=== PATIENT | female | born 1990 | race Caucasian/White ===

== ENCOUNTER → 2016-10-12 | Outpatient (CLI) | payer BC ==
[2016-10-12 16:20] LABS: CH 30.8; CHCM 35.4; HCT 39.1 % (34.0-46.0); HDW 2.39; HGB 13.5 gm/dL (11.4-16.0); MCH 30.1 pg (25.0-35.0); MCHC 34.5 g/dL (31.0-37.0); MCV 87.1 fL (80.0-100.0); RBC 4.49 m/uL (3.80-5.40); RDW 11.8 % (11.5-15.5); WBC 15.2 k/uL (3.8-10.6)
[2016-10-12 16:36] LABS: Glucose 77 mg/dL (74-99); Non-African American GFR(MDRD) >60 (>60 ml/min/1.73 sqM)
[2016-10-12 17:09] LABS: Hepatitis B Surface Ag Index 0.06
[2016-10-13 00:25] LABS: Treponemal Ab Non-Reactive (Non-Reactive)
[2016-10-13 07:42] LABS: HIV-1/HIV-2 Ab Screen NONREAC (NON REAC)
== END | disposition home or self-care (01) ==
LOC: LABWHC1 16:00
PROVIDERS: ATTEND Obstetrics & Gynecology
DX: O26.811 Pregnancy related exhaustion and fatigue, first trimester (principal); Z3A.00 Weeks of gestation of pregnancy not specified
CPT/HCPCS: 36415; 82565; 82947; 84443; 85027; 86762; 86777; 86778; 86780; 86850; 86900; 86901; 87340; 87389

== ENCOUNTER 2016-11-08 19:15 | Emergency (ER) | payer BC ==
[2016-11-08] MEDS ORDERED: SODIUM CHLORIDE 0.9% 1,000 ML IV ONE (20:09)
[2016-11-08] MEDS ORDERED: ACETAMINOPHEN IV (For NPO) 1,000 MG in EMPTY BAG 1 BAG IVPB STA (20:09)
[2016-11-08] MEDS ORDERED: diphenhydrAMINE 50 MG/ML 1 ML VIAL IVP STA (20:09)
[2016-11-08] MEDS ORDERED: PYRIDOXINE 100 MG/ML 1 ML VIAL IVP STA (20:10)
--- NOTE | 2016-11-08 20:15 | ED ---
Abdominal Pain HPI - General Chief Complaint: Abdominal Pain Stated Complaint: Abd Pain/Vomiting Time Seen by Provider: 11/08/16 19:59 Source: patient, RN notes reviewed Mode of arrival: ambulatory Limitations: no limitations - History of Present Illness Initial Comments: Patient is a 25-year-old female presents to the emergency room for evaluation of abdominal cramping, nausea and vomiting. Patient states she's about 16 weeks . Patient states she has been following up with Dr. Huggins. Patient states this morning she woke up with migraine, nausea and vomiting and bilateral lower abdominal cramping. Patient denies vaginal bleeding. Patient denies pain or burning during urination, trouble urinating or blood in urine. Patient states because of the nausea and vomiting, she is afraid that she is dehydrated and therefore dehydrating her baby. Patient denies any fevers or chills. Patient denies any significant past medical history. Patient states this is her first . - Related Data Home Medications Medication Instructions Recorded Confirmed Pnv with Ca,No.72/Iron/FA 1 tab PO DAILY 11/08/16 11/08/16 [ Plus Tablet] Previous Rx's Medication Instructions Recorded Pyridoxine [Vitamin B-6] 20 mg PO DAILY PRN #10 tablet 11/08/16 Allergies Allergy/AdvReac Type Severity Reaction Status Date / Time hydrocodone Allergy Rash/Hives Verified 11/08/16 21:18 Review of Systems ROS Statement: Those systems with pertinent positive or pertinent negative responses have been documented in the HPI. ROS Other: All systems not noted in ROS Statement are negative. Past Medical History Past Medical History: No Reported History History of Any Multi-Drug Resistant Organisms: None Reported Additional Past Surgical History / Comment(s): breast reduction Past Psychological History: Depression Smoking Status: Never smoker Past Alcohol Use History: None Reported Past Drug Use History: None Reported General Exam - General Exam Comments Initial Comments: Laying in exam room, no distress. Limitations: no limitations General appearance: alert, in no apparent distress Head exam: Present: atraumatic, normocephalic, normal inspection Eye exam: Present: normal appearance ENT exam: Present: normal exam Neck exam: Present: normal inspection Respiratory exam: Present: normal lung sounds bilaterally. Absent: respiratory distress Cardiovascular Exam: Present: regular rate, normal rhythm, normal heart sounds GI/Abdominal exam: Present: soft, normal bowel sounds. Absent: distended, tenderness, guarding, rebound, rigid Extremities exam: Present: normal inspection Back exam: Present: normal inspection Neurological exam: Present: alert, oriented X3, CN II-XII intact, normal gait Psychiatric exam: Present: normal affect, normal mood Skin exam: Present: warm, dry, intact, normal color. Absent: rash Course Vital Signs 11/08/16 11/08/16 19:57 23:26 Temperature 98.3 F 99.1 F Pulse Rate 90 83 Respiratory 18 16 Rate Blood Pressure 123/67 114/59 O2 Sat by Pulse 98 97 Oximetry Medical Decision Making - Medical Decision Making Patient is a 25-year-old female presents to the emergency room for evaluation of abdominal cramping, nausea and vomiting. Labs show no significant findings. Ultrasound shows no significant findings. Patient states she is feeling better after fluids and antinausea medications given. Patient states she would like to be discharged home. Advised patient to follow- up with [facility]. Return parameters discussed. Case discussed with Dr. Nj. - Lab Data Result diagrams: 11/08/16 20:17 11/08/16 20:17 Lab Results 11/08/16 11/08/16 11/08/16 Range/Units 20:17 20:17 20:17 WBC 17.1 H (3.8-10.6) k/uL RBC 4.49 (3.80-5.40) m/uL Hgb 13.6 (11.4-16.0) gm/dL Hct 39.2 (34.0-46.0) % MCV 87.3 (80.0-100.0) fL MCH 30.2 (25.0-35.0) pg MCHC 34.6 (31.0-37.0) g/dL RDW 12.1 (11.5-15.5) % Plt Count 345 (150-450) k/uL Neutrophils % 79 % Lymphocytes % 13 % Monocytes % 4 % Eosinophils % 2 % Basophils % 0 % Neutrophils # 13.6 H (1.3-7.7) k/uL Lymphocytes # 2.3 (1.0-4.8) k/uL Monocytes # 0.7 (0-1.0) k/uL Eosinophils # 0.3 (0-0.7) k/uL Basophils # 0.0 (0-0.2) k/uL Sodium 138 (137-145) mmol/L Potassium 3.8 (3.5-5.1) mmol/L Chloride 104 (98-107) mmol/L Carbon Dioxide 21 L (22-30) mmol/L Anion Gap 13 mmol/L BUN 6 L (7-17) mg/dL Creatinine 0.58 (0.52-1.04) mg/dL Est GFR (MDRD) Af Amer >60 (>60 ml/min/1.73 sqM) Est GFR (MDRD) Non-Af >60 (>60 ml/min/1.73 sqM) Glucose 82 (74-99) mg/dL Calcium 9.8 (8.4-10.2) mg/dL Total Bilirubin 0.6 (0.2-1.3) mg/dL AST 24 (14-36) U/L ALT 25 (9-52) U/L Alkaline Phosphatase 47 (38-126) U/L Total Protein 7.2 (6.3-8.2) g/dL Albumin 4.1 (3.5-5.0) g/dL Amylase 70 (30-110) U/L Lipase 67 (23-300) U/L Urine Color Urine Appearance (Clear) Urine pH (5.0-8.0) Ur Specific [place] (1.001-1.035) Urine Protein (Negative) Urine Glucose (UA) (Negative) Urine Ketones (Negative) Urine Blood (Negative) Urine Nitrate (Negative) Urine Bilirubin (Negative) Urine Urobilinogen (<2.0) mg/dL Ur Leukocyte Esterase (Negative) Blood Type A Positive Blood Type Recheck No 11/08/16 Range/Units 22:10 WBC (3.8-10.6) k/uL RBC (3.80-5.40) m/uL Hgb (11.4-16.0) gm/dL Hct (34.0-46.0) % MCV (80.0-100.0) fL MCH (25.0-35.0) pg MCHC (31.0-37.0) g/dL RDW (11.5-15.5) % Plt Count (150-450) k/uL Neutrophils % % Lymphocytes % % Monocytes % % Eosinophils % % Basophils % % Neutrophils # (1.3-7.7) k/uL Lymphocytes # (1.0-4.8) k/uL Monocytes # (0-1.0) k/uL Eosinophils # (0-0.7) k/uL Basophils # (0-0.2) k/uL Sodium (137-145) mmol/L Potassium (3.5-5.1) mmol/L Chloride (98-107) mmol/L Carbon Dioxide (22-30) mmol/L Anion Gap mmol/L BUN (7-17) mg/dL Creatinine (0.52-1.04) mg/dL Est GFR (MDRD) Af Amer (>60 ml/min/1.73 sqM) Est GFR (MDRD) Non-Af (>60 ml/min/1.73 sqM) Glucose (74-99) mg/dL Calcium (8.4-10.2) mg/dL Total Bilirubin (0.2-1.3) mg/dL AST (14-36) U/L ALT (9-52) U/L Alkaline Phosphatase (38-126) U/L Total Protein (6.3-8.2) g/dL Albumin (3.5-5.0) g/dL Amylase (30-110) U/L Lipase (23-300) U/L Urine Color Yellow Urine Appearance Clear (Clear) Urine pH 5.5 (5.0-8.0) Ur Specific [place] 1.024 (1.001-1.035) Urine Protein Negative (Negative) Urine Glucose (UA) Negative (Negative) Urine Ketones 4+ H (Negative) Urine Blood Negative (Negative) Urine Nitrate Negative (Negative) Urine Bilirubin Negative (Negative) Urine Urobilinogen <2.0 (<2.0) mg/dL Ur Leukocyte Esterase Negative (Negative) Blood Type Blood Type Recheck - Radiology Data Radiology results: report reviewed, image reviewed Disposition Clinical Impression: Hyperemesis gravidarum Disposition: HOME SELF-CARE Condition: Good Instructions: Hyperemesis Gravidarum (ED) Additional Instructions: Please follow-up with [facility] in 24-48 hours. Drink plenty of fluids. Soft/ liquid diet for the next 1-2 days. If any new symptom arises, symptoms worsen or fever develops, return to ER as soon as possible. Prescriptions: Pyridoxine [Vitamin B-6] 20 mg PO DAILY PRN #10 tablet PRN Reason: Nausea Referrals: Nonstaff,Physician [Primary Care Provider] - 1-2 days Time of Disposition: 23:12
[2016-11-08 20:35] LABS: ALT 25 U/L (9-52); AST 24 U/L (14-36); Alkaline Phosphatase 47 U/L (38-126); Amylase 70 U/L (30-110); Anion Gap 13 mmol/L; Blood Urea Nitrogen 6 mg/dL (7-17); Calcium 9.8 mg/dL (8.4-10.2); Carbon Dioxide 21 mmol/L (22-30); Chloride 104 mmol/L (98-107); Glucose 82 mg/dL (74-99); Non-African American GFR(MDRD) >60 (>60 ml/min/1.73 sqM); Potassium 3.8 mmol/L (3.5-5.1); Sodium 138 mmol/L (137-145); Total Bilirubin 0.6 mg/dL (0.2-1.3); Total Protein 7.2 g/dL (6.3-8.2)
[2016-11-08 20:48] LABS: Basophils % (A) 0 %; CH 30.8; CHCM 35.4; Eosinophils # (A) 0.3 k/uL (0-0.7); Eosinophils % (A) 2 %; HCT 39.2 % (34.0-46.0); HDW 2.42; HGB 13.6 gm/dL (11.4-16.0); Luc # (Auto) 0.22; Luc % (Auto) 1; Lymphocytes # (A) 2.3 k/uL (1.0-4.8); Lymphocytes % (A) 13 %; MCH 30.2 pg (25.0-35.0); MCHC 34.6 g/dL (31.0-37.0); MCV 87.3 fL (80.0-100.0); Mean Platelet Volume 6.5; Monocytes # (A) 0.7 k/uL (0-1.0); Monocytes % (A) 4 %; Neutrophils # (A) 13.6 k/uL (1.3-7.7); Neutrophils % (A) 79 %; RBC 4.49 m/uL (3.80-5.40); RDW 12.1 % (11.5-15.5); WBC 17.1 k/uL (3.8-10.6); WBC (Perox) 18.24
--- NOTE | 2016-11-08 21:22 | US ---
EXAMINATION TYPE: US OB >= 14 WK FETUS DATE OF EXAM: 11/08/2016 8:19 PM COMPARISON: None CLINICAL HISTORY: Pain TECHNIQUE: Transabdominal (TA) GESTATIONAL AGE / DATING Physician Established: (15 weeks/6 days) EDC: 04/26/2017 Dates by LMP: (15 weeks/6 days) EDC: 04/26/2017 Dates by First Scan: No previous Dates by Current Scan: (15 weeks/5 days) EDC: 04/27/2017 SURVEY IUP: Single PLACENTA: Anterior PREVIA: No Previa VANESSA: 11 cm CERVICAL LENGTH (transabdominal: norm > 3.0cm): 3 cm BIOMETRY PRESENTATION: Breech LIE: Longitudinal BPD: 2.99 cm 15 weeks / 3 days HC: 11.7 cm 15 weeks / 5 days AC: 9.5 cm 15 weeks / 4 days FL: 1.7 cm 15 weeks / 1 days ESTIMATED WEIGHT IN GRAMS: 124.07 grams ESTIMATED WEIGHT IN LBS/OZS: 0 lbs. 4 oz. WEIGHT PERCENTAGE BASED ON ESTABLISHED DATES: 16.6% HC/AC: 1.23 Normal FL/AC: 18.2 Normal HEART RATE: 155 bpm RHYTHM: Normal IMPRESSION: 1. VIABLE INTRAUTERINE . 2. Placental smoothly marginated anechoic focus measuring 2.8 X 0.7 X 3.2 cm, likely subacute-chronic subchorionic hemorrhage.
[2016-11-08] MEDS ORDERED: METOCLOPRAMIDE 5 MG/ML 2 ML VIAL IVP STA (22:00)
[2016-11-08 22:28] LABS: Appearance,Urine Clear (Clear); Bilirubin,Urine Negative (Negative); Glucose,Urine (UA) Negative (Negative); Ketones,Urine 4+ (Negative); Leukocyte Esterase,Urine Negative (Negative); Nitrite,Urine Negative (Negative); PH, Urine 5.5 (5.0-8.0); Protein,Urine Negative (Negative); Specific Gravity,Urine 1.024 (1.001-1.035); UA Billing (MACRO vs. MICRO) CHEM; Urobilinogen,Urine <2.0 mg/dL (<2.0)
[2016-11-08 23:30] VITALS: BP 114/59; PULSE 83; RESP 16; TEMP 99.1
== END 2016-11-08 23:33 | disposition home or self-care (01) ==
LOC: EC 19:15
DX: O21.0 Mild hyperemesis gravidarum (principal); O99.89 Other specified diseases and conditions complicating pregnancy, childbirth and the puerperium; R10.9 Unspecified abdominal pain; Z3A.16 16 weeks gestation of pregnancy; Z79.899 Other long term (current) drug therapy; Z88.5 Allergy status to narcotic agent
CPT/HCPCS: 99284; 96374; 96375 ×3; 96361; 36415; 86900; 86901; 80053; 82150; 83690; 85025; 81003; 76805; J1200; J3415; J2765; J0131

== ENCOUNTER → 2016-11-28 | Outpatient (CLI) | payer BC ==
--- NOTE | 2016-11-28 17:02 | US ---
EXAMINATION TYPE: US OB anatomy transabd DATE OF EXAM: 11/28/2016 4:42 PM COMPARISON: US in PACS HISTORY: LGA, Anatomy Scan TECHNIQUE: Transabdominal (TA) EXAM MEASUREMENTS: GESTATIONAL AGE / DATING Physician Established: (18 weeks/5 days) EDC: 04/26/2017 Dates by LMP: (18 weeks/5 days) EDC: 04/26/2017 Dates by First Scan: (18 weeks/4 days) EDC: 04/27/2017 Dates by Current Scan for: (18 weeks/3 days) EDC: 04/28/2017 SURVEY IUP: Single PLACENTA: Anterior PREVIA: Low Lying VANESSA: 12.2 cm Normal CERVICAL LENGTH (transabdominal: norm > 3.0cm): 3.2 cm BIOMETRY PRESENTATION: Breech BPD: 4.2 cm 18 weeks / 6 days HC: 15.7 cm 18 weeks / 4 days AC: 12.9 cm 18 weeks / 3 days FL: 2.7 cm 18 weeks / 1 days ESTIMATED WEIGHT IN GRAMS: 235 grams ESTIMATED WEIGHT IN LBS/OZS: 0 lbs. 8 oz. WEIGHT PERCENTAGE BASED ON ESTABLISHED DATE: 25 % HC/AC: 1.21 Normal FL/AC: 21 Normal HEART RATE: 159 bpm RHYTHM: Normal ANATOMY SEEN (within normal limits): * Lateral Vent (< 1 cm) 0.9 cm * Cisterna Magna (< 1.1 cm) 0.3 cm * Nuchal Fold (< 0.6 cm) 0.2 cm * Cerebellum (varies with age) 1.8 cm Choroid Plexus (bilateral) Midline Falx Cavus Septi Pellucidi Four Chamber Heart Outflow tracts: LVOT/RVOT Stomach Situs Nose / Lips Diaphragm Kidneys (bilateral) Bladder Cord Insert Three Vessel Cord Longitudinal Spine Transverse Spine Arms (bilateral) Legs (bilateral) IMPRESSION: Single, viable IUP/ No abnormality seen at this time
== END | disposition home or self-care (01) ==
LOC: RADUSWWP 15:55
PROVIDERS: ATTEND Obstetrics & Gynecology
DX: O36.62X0 Maternal care for excessive fetal growth, second trimester, not applicable or unspecified (principal); Z3A.18 18 weeks gestation of pregnancy
CPT/HCPCS: 76811; 82105; 82677; 84702; 86336

== ENCOUNTER → 2017-01-16 | Outpatient (CLI) | payer BC ==
[2017-01-16 14:01] LABS: CH 30.2; CHCM 34.2; HCT 37.9 % (34.0-46.0); HDW 2.48; HGB 13.4 gm/dL (11.4-16.0); MCH 31.2 pg (25.0-35.0); MCHC 35.2 g/dL (31.0-37.0); MCV 88.6 fL (80.0-100.0); Mean Platelet Volume 6.7; RBC 4.28 m/uL (3.80-5.40); RDW 12.1 % (11.5-15.5); WBC 20.8 k/uL (3.8-10.6)
== END | disposition home or self-care (01) ==
LOC: LABWHC1 12:45
PROVIDERS: ATTEND Obstetrics & Gynecology
DX: Z34.02 Encounter for supervision of normal first pregnancy, second trimester (principal); Z3A.00 Weeks of gestation of pregnancy not specified
CPT/HCPCS: 36415; 82950; 85027

== ENCOUNTER 2017-03-13 00:31 | Inpatient (IN) | payer BC ==
[2017-03-13] MEDS ORDERED: LACTATED RINGERS 1,000 ML IV SCH ×4 (01:00)
[2017-03-13] MEDS ORDERED: BETAMET ACET-BETAMETH SOD PHOS 6 MG/ML VIAL IM SCH (01:00)
[2017-03-13 01:23] LABS: Basophils # (A) 0.1 k/uL (0-0.2); Basophils % (A) 0 %; CH 30.4; CHCM 34.3; Eosinophils # (A) 0.3 k/uL (0-0.7); Eosinophils % (A) 2 %; HCT 36.4 % (34.0-46.0); HDW 2.38; HGB 12.4 gm/dL (11.4-16.0); Luc % (Auto) 1; Lymphocytes # (A) 2.6 k/uL (1.0-4.8); Lymphocytes % (A) 13 %; MCH 30.2 pg (25.0-35.0); MCV 88.9 fL (80.0-100.0); Mean Platelet Volume 7.3; Monocytes # (A) 1.1 k/uL (0-1.0); Monocytes % (A) 5 %; Neutrophils # (A) 15.8 k/uL (1.3-7.7); Neutrophils % (A) 79 %; RBC 4.09 m/uL (3.80-5.40); RDW 12.9 % (11.5-15.5); WBC 20.1 k/uL (3.8-10.6); WBC (Perox) 20.37
--- NOTE | 2017-03-13 02:04 | US ---
US FEMALE PELVIS DATE OF EXAM: 03/13/2017 COMPARISON: Ultrasound pelvis dated 11/28/2016. CLINICAL HISTORY: bleeding TECHNIQUE: Transabdominal sonographic imaging was performed of the female pelvis. GESTATIONAL AGE / DATING Physician Established: (33 weeks/5 days) EDC: 04/26/2017 Dates by LMP: (33 weeks/5 days) EDC: 04/26/2017 Dates by First Scan: (33 weeks/4 days) EDC: 04/27/2017 Dates by Current Scan: (32 weeks/4 days) EDC: 05/04/2017 SURVEY IUP: Single PLACENTA: Anterior. Placental lakes visualized within the placenta PREVIA: No Previa VANESSA: 4.3 cm Oligohydramnios CERVICAL LENGTH (transabdominal: norm > 3.0cm): 3.4 cm BIOMETRY PRESENTATION: Vertex LIE: Longitudinal BPD: 8.4 cm = 34 weeks / 0 days HC: 30.3 cm = 33 weeks / 5 days AC: 27.6 cm = 31 weeks / 4 days FL: 6.3 cm = 32 weeks / 5 days ESTIMATED WEIGHT IN GRAMS: 1956 grams ESTIMATED WEIGHT IN LBS/OZS: 4 lbs. 5 oz. WEIGHT PERCENTAGE BASED ON ESTABLISHED DATES: 11% HC/AC: 1.10 Normal FL/AC: 22.93 Normal HEART RATE: 132 bpm RHYTHM: Normal Impression: Viable IUP. Oligohydramnios. Dr. Contreras present during the exam.
[2017-03-13 02:23] VITALS: BP 123/59; PULSE 58; RESP 16; TEMP 97.2; BMI 32.9
[2017-03-13] MEDS: AMPICILLIN 2,000 MG in SODIUM CHLORIDE 0.9% 100 ML IVPB SCH ×2 (02:29→06:23)
--- NOTE | 2017-03-13 02:30 | P.HPOB ---
History of Present Illness H&P Date: 03/13/17 Chief Complaint: IUP 33 weeks, vaginal bleeding: suspect PPROM Memo is a 26-year-old female at 33 weeks gestation who arrives tonight complaining of vaginal bleeding. She reports that earlier in the evening she and her are having intercourse and during active having intercourse she noticed a large gush of fluid which she attributed to being blood as she looked down there was grossly bloody. She went to the bathroom and continued to have blood in the therefore they came right into the hospital. I was in the hospital and did evaluate her immediately. heart tones were reactive in the 130s. I did do a sterile speculum exam and noted that there was blood coming from what appeared to be inside the cervix but it was somewhat difficult to tell due to the volume of blood. I did do this sterile vaginal exam at that time as it appeared that her cervix might be slightly open she was dilated to 1/ 2 cm 80% effaced and -2 station. At this point we did order a stat ultrasound which showed no abnormalities of the placenta but showed an VANESSA of 4. I suspect basal cell information that she actually ruptured her membranes and she has premature rupture of membranes. We did have a lengthy discussion of this and the likelihood that we will need to transfer her if we can stabilize the bleeding and make sure that she has no more significant bleeding. At this time she has no contractions. She has received 1 dose of Celestone and a dose of IV antibiotics. We'll continue to monitor over the next few hours and if the bleeding abates then we'll plan transfer she understands and all these questions with regard to this are answered for the patient in detail. Her is also present at bedside. Asked medical history is based unremarkable. Past surgical history breast reduction. ALLERGIES to hydrocodone. Social history is unremarkable. Family history is noncontributory. On physical exam vital signs are currently stable and she is afebrile. Heart regular, lungs clear, extremities without pain. Abdomen is otherwise soft gravid uterus is noted there were no contractions palpated or seen on the monitor. heart tones continued to be reactive in the 130s to 140s. Sterile speculum exam was done as above. Assessment intrauterine at 33 weeks 5 days gestation with suspected premature rupture membranes. A an amnio sure is unable to be done due to significant quantity of blood within the specimen. However ultrasound does make it seemed very likely that she is ruptured. At this time I am not starting mag sulfate as she is not jennifer and she is are received 1 of the doses of steroid. Plan cautious observation at this time to verify stability of both she and the baby. Likely transfer to a tertiary care center. Past Medical History Past Medical History: No Reported History History of Any Multi-Drug Resistant Organisms: None Reported Additional Past Surgical History / Comment(s): breast reduction Past Psychological History: Depression Smoking Status: Never smoker Past Alcohol Use History: None Reported Past Drug Use History: None Reported Medications and Allergies Home Medications Medication Instructions Recorded Confirmed Type Pnv,Calcium 72/Iron/Folic Acid 1 tab PO DAILY 11/08/16 03/13/17 History [ Plus Tablet] Allergies Allergy/AdvReac Type Severity Reaction Status Date / Time hydrocodone Allergy Rash/Hives Verified 03/13/17 00:42 Exam Osteopathic Statement: *. No significant issues noted on an osteopathic structural exam other than those noted in the History and Physical/Consult. - Vital Signs Vital signs: Vital Signs Temp Pulse Resp BP 03/13/17 00:41 96.6 F L 65 18 126/63 Intake and Output 03/12/17 03/12/17 03/13/17 14:59 22:59 06:59 Other: Weight 92.533 kg Patient Weight 03/13/17 06:59 Weight 92.533 kg Results Result Diagrams: 03/13/17 01:00 Abnormal Lab Results - Last 24 Hours (Table) 03/13/17 Range/Units 01:00 WBC 20.1 H (3.8-10.6) k/uL Neutrophils # 15.8 H (1.3-7.7) k/uL Monocytes # 1.1 H (0-1.0) k/uL
[2017-03-13] MEDS ORDERED: MAGNESIUM SULFATE-WATER PMX 4 GM in WATER FOR INJECTION 50 50ML.BAG IVPB ONE ×2 (03:07→03:08)
[2017-03-13] MEDS ORDERED: CALCIUM GLUCONATE 100 MG/ML 10 ML VIAL IV ONE (03:07)
[2017-03-13] MEDS ORDERED: MAGNESIUM SULFATE-WATER PMX 20 GM in WATER FOR INJECTION 1 500ML.BAG IV SCH (03:15)
--- NOTE | 2017-03-13 08:47 | P.TRANS ---
Providers Date of admission: 03/13/17 01:50 Expected date of discharge: 03/13/17 Attending physician: Pradeep Contreras Primary care physician: Stated None Hospital Course: Mercedes is a 18-year-old at 33 weeks 5 days gestation who had what we believe is spontaneous rupture of membranes (PPROM (last night while having intercourse. She has been monitored throughout the night here due to vaginal bleeding initially the vaginal bleeding has essentially stopped there is no evidence of abruption no pain or tenderness at all patient has only rare contractions. heart tones have a baseline between 110 and 120 but are reactive and show knife no signs of distress or other issues. [facility] and she is under supervision of maternal medicine specialist . Will arrange transfer at this time. We did watch the patient for a number of hours to verify stability. Heart regular, lungs clear, extremities without pain. Her vital signs are stable and she is afebrile. We'll plan to transfer her on mag sulfate at this time they may choose to discontinue it and this was discussed with the patient in detail but as she is Christiano started on and she is going to be transported will maintain the mag sulfate for now. She has received 1 dose of ampicillin at their request we'll provide 500 mg of erythromycin as well. Assessment intrauterine at 33 weeks Plan transfer of care to [facility]. Patient Condition at Discharge: Stable Plan - Transfer Summary Transfer Medications: Active Medications Generic Name Dose Route Start Last Admin Trade Name Freq PRN Reason Stop Dose Admin Betamethasone Acet/Betameth SodPhos 12 mg 03/13/17 01:00 03/13/17 01:38 Celestone Soluspan IM 03/14/17 01:01 12 mg Q24H JONI Administration Lactated Ringer's 1,000 mls @ 999 mls/hr 03/13/17 01:00 03/13/17 00:50 Lactated Ringers IV 999 mls/hr .Q1H1M JONI Administration Lactated Ringer's 1,000 mls @ 125 mls/hr 03/13/17 01:00 03/13/17 01:38 Lactated Ringers IV 125 mls/hr .Q8H JONI Administration Ampicillin Sodium 2,000 mg/ 100 mls @ 200 mls/hr 03/13/17 04:00 03/13/17 06: 23 Sodium Chloride IVPB 200 mls/hr Q4HR JONI Administration Magnesium Sulfate 20 gm/ IV 500 mls @ 50 mls/hr 03/13/17 03:15 03/13/17 03:36 Solution IV 2 gm/hr .Q10H JONI 50 mls/hr 2 GM/HR Administration Azithromycin 500 mg/ Sodium 250 mls @ 125 mls/hr 03/13/17 09:00 Chloride IVPB DAILY JONI
[2017-03-13] MEDS ORDERED: AZITHROMYCIN 500 MG in SODIUM CHLORIDE 0.9% 250 ML IVPB SCH (09:00)
== END 2017-03-13 09:55 | disposition short-term general hospital (02) | DRG 775 ==
LOC: FBPOP 00:31 → 4FBP 01:50
PROVIDERS: ADMIT Obstetrics & Gynecology; ATTEND Obstetrics & Gynecology
DX: O42.913 Preterm premature rupture of membranes, unspecified as to length of time between rupture and onset of labor, third trimester (principal); O99.344 Other mental disorders complicating childbirth; F32.9 Major depressive disorder, single episode, unspecified; Z3A.33 33 weeks gestation of pregnancy; Z88.5 Allergy status to narcotic agent
CPT/HCPCS: 59025; 76805; 83735; 85025; 96361; 96365; 96367; 96372; 99215

== ENCOUNTER → 2017-05-15 | Outpatient (CLI) | payer BC | END | disposition home or self-care (01) | LOC: LABWHC1 11:10 | PROVIDERS: ATTEND Obstetrics & Gynecology | DX: Z34.90 Encounter for supervision of normal pregnancy, unspecified, unspecified trimester (principal) | CPT/HCPCS: 36415; 84702 ==

== ENCOUNTER → 2018-07-16 | Outpatient (CLI) | payer BC | LOC: LABWHC1 14:48 | PROVIDERS: ATTEND Obstetrics & Gynecology | DX: N93.8 Other specified abnormal uterine and vaginal bleeding (principal) | CPT/HCPCS: 36415; 84702 ==

== ENCOUNTER 2020-08-17 13:16 | Outpatient (CLI) | payer BC ==
[2020-08-17 13:43] LABS: Glucose,Whole Blood 88 mg/dL (75-99)
[2020-08-17 13:57] VITALS: PULSE 90; RESP 16; TEMP 96.5
--- NOTE | 2020-09-15 09:41 | P.MSEPDOC ---
Presenting Problems - Arrival Data Date of Arrival on Unit: 08/17/20 Time of Arrival on Unit: 13:30 Mode of Transport: Ambulatory - Complaint OB-Reason for Admission/Chief Complaint: Visual Disturbances Medical History - Information : 3 Para: 1 Term: 0 : 1 Abortions: Spontaneous or Elective: 1 Number of Living Children: 1 - Gestational Age Gestational Age by PASOTR (wks/days): 28 Weeks and 6 Days - History Complications: Prior Review of Systems - Review of Systems Constitutional: No problems Breast: No problems ENT: No problems Cardiovascular: No problems Respiratory: No problems Gastrointestinal: No problems Genitourinary: No problems Musculoskeletal: No problems Neurological: Dizziness Skin: No problems Comment: Dizziness resolved at current Vital Signs - Temperature Temperature: 96.5 F Temperature Source: Temporal Artery Scan - Pulse Right Sitting Pulse Rate: 90 Pulse Assessment Method: Automatic Cuff - Respirations Respiratory Rate: 16 Oxygen Delivery Method: Room Air Medical Screen Scoring (Pre) - Cervical Exam Dilation: Exam Deferred Effacement: Exam Deferred Membranes: Intact - Uterine Contractions Frequency: N/A Duration: N/A Intensity: N/A - Maternal Vital Signs Maternal Temperature: N/A Maternal Blood Pressure: N/A Signs of Preeclampsia: N/A Maternal Respirations: N/A - Maternal Trauma Maternal Trauma: N/A - Assessment - Baby A Baseline FHR: 135 Heart Rate - NICHD Category: Category I (Normal) = 0 NST: Reactive Position: N/A Station: N/A - Total Score - Baby A Total Score - Baby A: 0 - Total Score - Baby B Total Score - Baby B: 0 - Total Score - Baby C Total Score - Baby C: 0 - Level of Risk - Baby A Level of Risk - Baby A: Low (0-5) - Level of Risk - Baby B Level of Risk - Baby B: Low (0-5) - Level of Risk - Baby C Level of Risk - Baby C: Low (0-5) Physician Notification (Pre) - Physician Notified Physician Notified Date: 08/17/20 Physician Notified Time: 13:45 New Order Received: Yes - Notification Comment Comment: Jose serrano\\Dr. Contreras, advsd , [birth year] 03/06, reviewed pts c/o of vision changes and ongoing tunnel vision and head feeling "tingly". States to d/c to EC with reassuring FHT. Disposition - Disposition OB Disposition: Transfer to other dept./facility Transferred to:: EC Discharge Date: 08/17/20 I agree with the RN Medical Screening Exam: Yes Risk & Benefit of care provided described in d/c instruction: Yes Diagnosis: VISUAL DISTORTIONS OF SHAPE AND SIZE (sent to er for full evaluation after clearing )
== END 2020-08-17 13:50 | disposition other institution (70) ==
LOC: FBPOP 13:16
PROVIDERS: ATTEND Obstetrics & Gynecology
DX: O28.8 Other abnormal findings on antenatal screening of mother (principal); H53.15 Visual distortions of shape and size; Z3A.28 28 weeks gestation of pregnancy
CPT/HCPCS: 59025; 99213

== ENCOUNTER 2020-08-17 13:59 | Emergency (ER) | payer BC ==
[2020-08-17 14:06] VITALS: BP 109/66; PULSE 70; RESP 16; TEMP 98.8
--- NOTE | 2020-08-17 14:58 | ED ---
General Adult HPI - General Chief complaint: Eye Problems Stated complaint: Vision Issues 29wk Preg Time Seen by Provider: 08/17/20 14:29 Source: patient, RN notes reviewed Mode of arrival: wheelchair Limitations: no limitations - History of Present Illness Initial comments: 29-year-old female currently 29 weeks presents to the emergency room for a chief complaint of visual issues. Patient reports that this morning around 9:30 AM she started to get kaleidoscope vision. States it was more on the edges of her vision. States she had a tingly sensation around her scalp. Patient states she called her doctor Dr. Aly who recommended she be seen at [facility] for rule out preeclampsia. Patient was evaluated there and was determined to be non-preeclamptic with a normal NST. Patient then reports she was sent down to the emergency room for further evaluation. Patient states that since about 11:30 her vision has improved significantly. She still has some slight blurry vision on the edges. She states she has had a similar visual disturbances in the past usually followed by migraine headaches. She did not have a headache today. Patient states she feels fine at this time and is not concerned.Patient has no other complaints at this time including shortness of breath, chest pain, abdominal pain, nausea or vomiting, headache. - Related Data Home Medications Medication Instructions Recorded Confirmed Pnv,Calcium 72/Iron/Folic Acid 1 tab PO DAILY 11/08/16 08/17/20 [ Plus Tablet] Magnesium 250 mg PO DAILY 08/17/20 08/17/20 Allergies Allergy/AdvReac Type Severity Reaction Status Date / Time hydrocodone Allergy Rash/Hives Verified 08/17/20 14:06 Review of Systems ROS Statement: Those systems with pertinent positive or pertinent negative responses have been documented in the HPI. ROS Other: All systems not noted in ROS Statement are negative. Past Medical History Past Medical History: No Reported History History of Any Multi-Drug Resistant Organisms: None Reported Additional Past Surgical History / Comment(s): breast reduction Past Anesthesia/Blood Transfusion Reactions: No Reported Reaction Additional Past Anesthesia/Blood Transfusion Reaction / Comment(s): blood pressure drops due to anesthesia Past Psychological History: Depression Smoking Status: Never smoker Past Alcohol Use History: None Reported Past Drug Use History: None Reported - Past Family History Mother Family Medical History: No Reported History General Exam Limitations: no limitations General appearance: alert, in no apparent distress Head exam: Present: atraumatic, normocephalic, normal inspection Eye exam: Present: normal appearance, PERRL, EOMI. Absent: scleral icterus, conjunctival injection, periorbital swelling Expanded Eyelids: Normal Inspection: Bilateral Pupils: Regular, Round: Bilateral Sclera/Conjunctival: Normal Inspection: Bilateral Visual acuity (R) = 20/: 25 Visual acuity (L) = 20/: 25 With correction: No ENT exam: Present: normal exam, mucous membranes moist Neck exam: Present: normal inspection, full ROM. Absent: tenderness, meningismus, lymphadenopathy Respiratory exam: Present: normal lung sounds bilaterally. Absent: respiratory distress, wheezes, rales, rhonchi, stridor Cardiovascular Exam: Present: regular rate, normal rhythm, normal heart sounds. Absent: systolic murmur, diastolic murmur, rubs, gallop, clicks GI/Abdominal exam: Present: soft, normal bowel sounds, other (Gravid abdomen). Absent: distended, tenderness, guarding, rebound, rigid Neurological exam: Present: alert, oriented X3, normal gait, other (GCS 15) Expanded Patient oriented to: Present: person, place, time Speech: Present: fluid speech Cranial nerves: EOM's Intact: Normal, Tongue Deviation: Normal, Nystagmus: Normal, Facial Sensation: Normal Cerebellar function: Finger to Nose: Normal, Romberg: Normal Upper motor neuron: Pronator Drift: Normal Sensory exam: Upper Extremity Light Touch: Normal, Upper Extremity Pin Prick: Normal, Lower Extremity Light Touch: Normal, Lower Extremity Pin Prick: Normal Motor strength exam: RUE: 5, LUE: 5, RLE: 5, LLE: 5 Eye Response: (4) open spontaneously Motor Response: (6) obeys commands Verbal Response: (5) oriented Susana Total: 15 Course Vital Signs 08/17/20 14:03 Temperature 98.8 F Pulse Rate 70 Respiratory 16 Rate Blood Pressure 109/66 O2 Sat by Pulse 99 Oximetry Medical Decision Making - Medical Decision Making Patient is a well-appearing female. Visual symptoms have nearly resolved at this point. She has no other symptoms whatsoever. She has had similar visual disturbances several times in the past related to migraines. Visual acuity is 20/25. Visual bonilla are intact. No focal neurologic deficits. Normal gait. I discussed this case with Dr. Contreras. At this point his main concern was if patient had a stroke. I discussed this with patient. At this time there are no focal neurologic deficits that would suggest ischemic or hemorrhagic stroke. I offered patient a CAT scan of her brain. However patient reports that she is feeling much better and at this time does not want a CAT scan. She is agreeable to returning for any worsening symptoms. This is likely aura with atypical migraine. Patient reports that she will follow up with her primary care doctor for her migraine headaches as she has not had a workup and gets these frequently. She will return here for any worsening symptoms. Both and patient are in agreement with this plan. I discussed this case with attending Dr. Hollins who agrees with this assessment and treatment plan. Disposition Clinical Impression: Blurry vision Disposition: HOME SELF-CARE Condition: Good Instructions (If sedation given, give patient instructions): Blurred Vision (ED) Additional Instructions: If you have any worsening symptoms return to the emergency room. Otherwise follow-up with your primary care regarding history of migraines. Follow-up with [facility] for any worsening symptoms. Is patient prescribed a controlled substance at d/c from ED?: No Referrals: Timo Vilchis DO [Primary Care Provider] - 1-2 days Time of Disposition: 15:15
== END 2020-08-17 15:47 | disposition home or self-care (01) ==
LOC: EC 13:59
DX: O99.891 Other specified diseases and conditions complicating pregnancy (principal); H53.8 Other visual disturbances; Z88.5 Allergy status to narcotic agent; Z3A.29 29 weeks gestation of pregnancy
CPT/HCPCS: 99283

== ENCOUNTER 2020-10-05 13:16 | Outpatient (CLI) | payer BC ==
[2020-10-05 15:55] VITALS: BP 136/73; PULSE 67; RESP 18; TEMP 96.2
--- NOTE | 2020-10-15 12:07 | P.MSEPDOC ---
Presenting Problems - Arrival Data Date of Arrival on Unit: 10/05/20 Time of Arrival on Unit: 13:30 Mode of Transport: Ambulatory - Complaint OB-Reason for Admission/Chief Complaint: Possible Onset of Labor Comment: irregular contractions, 2cm in the office today. Medical History - Information : 3 Para: 1 Term: 0 : 1 Abortions: Spontaneous or Elective: 1 Number of Living Children: 1 - Gestational Age Gestational Age by PASTOR (wks/days): 35 Weeks and 6 Days - History Complications: Prior Review of Systems - Review of Systems Constitutional: No problems Breast: No problems ENT: No problems Cardiovascular: No problems Respiratory: No problems Gastrointestinal: No problems Genitourinary: No problems Musculoskeletal: No problems Neurological: No problems Skin: No problems Vital Signs - Temperature Temperature: 96.2 F Temperature Source: Temporal Artery Scan - Pulse Right Sitting Brachial Pulse Rate: 67 Pulse Assessment Method: Automatic Cuff - Respirations Respiratory Rate: 18 Oxygen Delivery Method: Room Air - Blood Pressure Right Arm Sitting Blood Pressure: 136/73 Blood Pressure Mean: 94 Blood Pressure Source: Automatic Cuff Medical Screen Scoring (Pre) - Cervical Exam Dilation: 1-3 cm = 1 Effacement: More than 50% = 2 Membranes: Intact - Uterine Contractions Frequency: N/A, > 5 minutes apart = 1 Duration: > 40 seconds = 2 Intensity: N/A - Maternal Vital Signs Maternal Temperature: N/A Maternal Blood Pressure: N/A Signs of Preeclampsia: N/A Maternal Respirations: N/A - Maternal Trauma Maternal Trauma: N/A - Assessment - Baby A Baseline FHR: 135 Heart Rate - NICHD Category: Category I (Normal) = 0 NST: Reactive Position: N/A Station: N/A - Total Score - Baby A Total Score - Baby A: 6 - Total Score - Baby B Total Score - Baby B: 6 - Total Score - Baby C Total Score - Baby C: 6 - Level of Risk - Baby A Level of Risk - Baby A: Medium (6-9) - Level of Risk - Baby B Level of Risk - Baby B: Medium (6-9) - Level of Risk - Baby C Level of Risk - Baby C: Medium (6-9) Physician Notification (Pre) - Physician Notified Physician Notified Date: 10/05/20 Physician Notified Time: 15:30 New Order Received: Yes - Notification Comment Comment: Monitored in triage x2 hours. No cervical change. No bloody show on exam. Pt dc home. Pt encouraged to return with continued or increased symptoms. Encouraged increased po water intake. Follow up with Dr Contreras on . as scheduled. Disposition - Disposition OB Disposition: Discharge to home Discharge Date: 10/05/20 Discharge Time: 15:54 I agree with the RN Medical Screening Exam: Yes Risk & Benefit of care provided described in d/c instruction: Yes Diagnosis: FALSE LABOR AT OR AFTER 37 COMPLETED WEEKS OF GESTATION
== END 2020-10-05 15:55 | disposition home or self-care (01) ==
LOC: FBPOP 13:16
PROVIDERS: ATTEND Obstetrics & Gynecology
DX: O47.1 False labor at or after 37 completed weeks of gestation (principal); Z3A.35 35 weeks gestation of pregnancy
CPT/HCPCS: 59025; 99213

== ENCOUNTER 2020-10-14 11:23 | Inpatient (IN) | payer BC ==
[2020-10-14] MEDS ORDERED: LIDOCAINE 0.5% (PF) 5 MG/ML (50 ML SDV) SQ PRN (11:43)
[2020-10-14] MEDS ORDERED: TERBUTALINE 1 MG/ML VIAL SQ PRN (11:43)
[2020-10-14] MEDS ORDERED: CARBOPROST TROMETHAMINE 250 MCG/ML 1 ML AMP IM PRN (11:43)
[2020-10-14] MEDS ORDERED: OXYTOCIN 10 UNIT/ML 1 ML VIAL IM PRN (11:43)
[2020-10-14] MEDS ORDERED: METHYLERGONOVINE 0.2 MG/ML 1 ML AMP IM PRN (11:43)
[2020-10-14] MEDS: LACTATED RINGERS 1,000 ML IV SCH ×2 (11:45→14:35)
[2020-10-14 11:59] LABS: Basophils # (A) 0.1 k/uL (0-0.2); Basophils % (A) 1 %; Eosinophils # (A) 0.5 k/uL (0-0.7); Eosinophils % (A) 2 %; HCT 38.1 % (34.0-46.0); Lymphocytes # (A) 2.2 k/uL (1.0-4.8); Lymphocytes % (A) 11 %; MCH 28.6 pg (25.0-35.0); MCHC 34.2 g/dL (31.0-37.0); MCV 83.7 fL (80.0-100.0); Mean Platelet Volume 7.7; Monocytes # (A) 0.8 k/uL (0-1.0); Monocytes % (A) 4 %; Neutrophils # (A) 16.7 k/uL (1.3-7.7); Neutrophils % (A) 82 %; Platelet Count 320 k/uL (150-450); RBC 4.56 m/uL (3.80-5.40); RDW 12.4 % (11.5-15.5); WBC 20.5 k/uL (3.8-10.6)
[2020-10-14] MEDS: BUTORPHANOL 1 MG/ML 1 ML VIAL IV PRN ×4 (12:10→16:40)
[2020-10-14] MEDS: OXYTOCIN 30 UNITS/500 ML NS 30 UNIT in SALINE 1 500ML.BAG IV SCH ×2 (14:55→16:55)
[2020-10-14] MEDS ORDERED: ZOLPIDEM 5 MG TAB PO PRN (16:52)
[2020-10-14] MEDS ORDERED: LANOLIN CREAM 5 GM TUBE TOPICAL PRN (16:52)
[2020-10-14] MEDS ORDERED: diphenhydrAMINE 50 MG/ML 1 ML VIAL IVP PRN ×2 (16:52)
[2020-10-14] MEDS ORDERED: SIMETHICONE 80 MG CHEWABLE PO PRN (16:52)
[2020-10-14] MEDS ORDERED: diphenhydrAMINE 50 MG CAP PO PRN (16:52)
[2020-10-14] MEDS ORDERED: BENZOCAINE/MENTHOL SPRAY 1 GM/SPRAY AEROSOL TOPICAL PRN (16:52)
[2020-10-14] MEDS ORDERED: HYDROCORTISONE 2.5% RECTAL CREAM 30 GM TUBE RECTAL PRN (16:52)
[2020-10-14] MEDS ORDERED: diphenhydrAMINE 25 MG CAP PO PRN (16:52)
[2020-10-14] MEDS ORDERED: ACETAMINOPHEN TAB 325 MG TAB PO PRN (16:52)
[2020-10-14] MEDS ORDERED: Acetaminophen-Codeine 300-30mg TAB PO PRN (16:54)
--- NOTE | 2020-10-14 16:55 | P.HPOB ---
History of Present Illness H&P Date: 10/14/20 Chief Complaint: at term: Active labor Patient is a 29-year-old at 38 weeks gestation arise in active labor dilated to 6 cm. Her Precis course has been unremarkable and she is feeling well at this time. Her vital signs are stable and she is afebrile. Heart regular, lungs clear, extremities without pain. Artificial rupture membranes was performed and clear fluid is noted. Pertinent labs fluid A+ blood type, Rh antibody was negative. Rubella was immune, hepatitis B surface antigen/RPR were both negative group B strep was also negative. Category 1 tracing is noted. Anticipate spontaneous vaginal delivery and she expects to use IV pain medication for pain control. Past Medical History Past Medical History: No Reported History History of Any Multi-Drug Resistant Organisms: None Reported Additional Past Surgical History / Comment(s): breast reduction Past Anesthesia/Blood Transfusion Reactions: No Reported Reaction Additional Past Anesthesia/Blood Transfusion Reaction / Comment(s): blood pressure drops due to anesthesia Past Psychological History: Anxiety, Depression Smoking Status: Never smoker Past Alcohol Use History: None Reported Past Drug Use History: None Reported - Past Family History Mother Family Medical History: No Reported History Medications and Allergies Home Medications Medication Instructions Recorded Confirmed Type Pnv,Calcium 72/Iron/Folic Acid 1 tab PO DAILY 11/08/16 10/14/20 History [ Plus Tablet] Allergies Allergy/AdvReac Type Severity Reaction Status Date / Time hydrocodone Allergy Rash/Hives Verified 10/14/20 11:41 Exam Osteopathic Statement: *. No significant issues noted on an osteopathic structural exam other than those noted in the History and Physical/Consult. Vital Signs Temp Pulse Resp BP 10/14/20 12:16 96.4 F L 95 18 133/74 10/14/20 11:42 96.4 F L 95 18 133/74 Intake and Output 10/14/20 10/14/20 10/14/20 06:59 14:59 22:59 Intake Total 1000 Balance 1000 Intake: IV 1000 Other: # Voids 3 Weight 103.419 kg - OBG Physical Exam Breast: both: normal (no masses) Abdomen: bowel sounds normal, no diffuse tenderness, no bruit present, no guarding noted, no hepatomegaly, no splenomegaly, no mass Vulva: both: normal Vagina: normal moisture, no discharge Cervix: no lesion, no discharge Uterus: normal size, normal contour Adnexa: both: normal Anus/Rectum: normal perianal skin, no rectal mass, no hemorrhoids, heme negative Results Result Diagrams: 10/14/20 11:45 Abnormal Lab Results - Last 24 Hours (Table) 10/14/20 Range/Units 11:45 WBC 20.5 H (3.8-10.6) k/uL Neutrophils # 16.7 H (1.3-7.7) k/uL
--- NOTE | 2020-10-14 16:58 | P.PROBDLV ---
Vaginal Delivery Note - . Vaginal Delivery Note: Breast complete and pushing with spontaneous vaginal delivery of a viable male over a third-degree perineal laceration and keep vaginal laceration. Following delivery of the head a compound cord was noted but anterior posterior shoulders were easily delivered with gentle downward upper traction. Once baby was delivered mouth nares were bulb suctioned and baby was placed on mother's abdomen where the umbilical cord was allowed to pulsate for 30 seconds prior to clamping and cutting. Nursery personnel was present and assumed care. Placenta was then delivered intact Pitocin was added to the IV. scores were 9 and 9 at one and 5 minutes respectively weight was 6 lbs. 6 oz. Inspection of the vagina reveals a 6 cm long laceration extending from just anterior to the cervix into third-degree laceration. It was repaired in 3 steps with 3-0 Vicryl. Initially the apex was reached worse close the apex as I can get and a anchor suture was placed and then bringing forward the incision was closed in a running fashion to approximately the middle of the laceration. Once this was accomplished suture was exchanged and a new suture was used to close the third- degree perineal laceration rectal exam was done and gloves were changed to verify was only a third-degree perineal laceration. vulva is noted. finally 3- 0 vicryl in a small needle was used to reapproximate a right labial avulsion that was relatively deep approximately one quarter of an inch and that was approximately 3 cm long. during the closure she did not tolerate the closure well despite using approximately 20 ml of local and g6 of half percent lidocaine she continued to have pain throughout the closure she was given 2 of stadol to try and get her pain under control after closure she is doing well and she is stable breathing well vital signs are stable and afebrile.
[2020-10-14] MEDS ORDERED: ONDANSETRON 4 MG/2 ML VIAL ONE (19:31)
[2020-10-14] MEDS ORDERED: PROPOFOL 10 MG/ML 20 ML VIAL IV ONE (19:31)
[2020-10-14] MEDS ORDERED: MIDAZOLAM 2 MG/2 ML VIAL ONE (19:31)
[2020-10-14] MEDS ORDERED: KETOROLAC 15 MG/ML 1 ML VIAL ONE (19:31)
[2020-10-14] MEDS ORDERED: HYDROmorphone (PF) 1 MG/ML ONE (19:31)
[2020-10-14] MEDS ORDERED: SUCCINYLCHOLINE CHLORIDE 100 MG/5 ML SYR IV ONE (19:31)
[2020-10-14] MEDS ORDERED: DEXAMETHASONE SOD PHOSPHATE 10 MG/ML 1 ML VIAL ONE (19:31)
[2020-10-14] MEDS ORDERED: SODIUM CHLORIDE 0.9% 100 ML BAG ONE (19:31)
[2020-10-14] MEDS ORDERED: ceFAZolin 1,000 MG VIAL ONE (19:31)
[2020-10-14] MEDS ORDERED: LIDOCAINE 1% INJ 10MG/ML (20 ML MDV) ONE (19:31)
[2020-10-14] MEDS ORDERED: fentaNYL (PF) 50 MCG/ML 2 ML AMP ONE (19:31)
[2020-10-14 19:36] LABS: HCT 34.5 % (34.0-46.0); HGB 11.8 gm/dL (11.4-16.0); MCHC 34.1 g/dL (31.0-37.0); MCV 87.9 fL (80.0-100.0); Mean Platelet Volume 7.4; Platelet Count 302 k/uL (150-450); RBC 3.92 m/uL (3.80-5.40); RDW 12.7 % (11.5-15.5); WBC 27.3 k/uL (3.8-10.6)
[2020-10-14 19:58] LABS: Band Neutrophils % 5 %; Lymphocytes # (M) 1.64 k/uL (1.0-4.8); Monocytes # (M) 0.55 k/uL (0-1.0); Neutrophils % (M) 88 %; Nucleated Red Blood Cells 0 /100 WBC (0-0); Total Cells Counted 200
[2020-10-14] MEDS ORDERED: HYDROmorphone PCA 10 MG/50 ML BAG IV PRN (20:22)
[2020-10-14] MEDS ORDERED: NALOXONE 0.4 MG/ML 1 ML VIAL IV PRN (20:22)
--- NOTE | 2020-10-14 20:27 | P.OP ---
Date of Procedure: 10/14/20 Preoperative Diagnosis: hemorrhage Postoperative Diagnosis: Same with bleeding from underneath vaginal repair Procedure(s) Performed: Exam under anesthesia with repair of vaginal laceration Anesthesia: ALESHIA Surgeon: Pradeep Contreras Estimated Blood Loss (ml): 100 Pathology: none sent Condition: stable Disposition: floor Operative Findings: After thorough exam the only area that was noted to be bleeding was from underneath the initial repair in the posterior vagina Description of Procedure: Patient was taken to the operating suite following discussion or risks and benefits of exam under anesthesia with's hemorrhage. Following the delivery she had actually done relatively well but within the hour she had passage of several large clots and noted vaginal bleeding pushing her blood loss to slightly over 1000. She then became dizzy and was having severe unrelenting pain of unknown origin and with a blood pressure of 100/49 a decision to do an exam under anesthesia was made she was typed and crossed for 2 units but will not plan to give them unless something changes dramatically since we were able to I believe find the cause of her bleeding in the operating room and it is now appears under control. Hemoglobin was done and was 11. Once asleep and prepped and draped I did initially do a exam where I felt to the uterus and I could not palpate any membranes or placental fragments within my exam therefore this was stopped her uterus was firm and well below the umbilicus and no bleeding was really noted from that area. At this point we packed off the back of the vagina and identifying the apex of her laceration, even with sutures in, it was bleeding. [place] of the laceration was delineated with Allis clamps and was brought down into the vagina as far as I could for excellent visualization. 3-0 Vicryl was then used to reapproximate this area bringing it together and in doing so the bleeding appeared to stop. I did take apart the rest of the repair and reapproximated the tissue. It is noted to be again a third-degree laceration with no extension into the capsule of the rectum but it did approximate just superior to that area. I redid my rectal exam and no issues are noted within that area. Rectum is intact and appears to have good tone. The 3-0 Vicryl repair was done in usual fashion to reapproximate this tissue. At the conclusion of the procedure, we did sit and watch the area for at least 3 minutes to verify hemostasis. No significant areas of bleeding are noted. There was some interrupted 3-0 Vicryl sutures placed to reapproximate the skin and then one other small laceration within the vagina. Patient was then taken to the recovery room in stable and satisfactory condition and will be monitored very closely. 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
[2020-10-14] MEDS: SENNOSIDES-DOCUSATE SODIUM 1 EACH TAB PO SCH (22:24)
[2020-10-15] MEDS: IBUPROFEN 600 MG TAB PO PRN ×4 (00:59→23:17)
[2020-10-15 08:01] LABS: Basophils # (A) 0.1 k/uL (0-0.2); Basophils % (A) 0 %; Eosinophils % (A) 0 %; HCT 30.8 % (34.0-46.0); HGB 10.7 gm/dL (11.4-16.0); Lymphocytes # (A) 2.9 k/uL (1.0-4.8); Lymphocytes % (A) 10 %; MCH 29.5 pg (25.0-35.0); MCHC 34.6 g/dL (31.0-37.0); MCV 85.1 fL (80.0-100.0); Mean Platelet Volume 7.3; Monocytes # (A) 1.4 k/uL (0-1.0); Monocytes % (A) 5 %; Neutrophils # (A) 25.4 k/uL (1.3-7.7); Neutrophils % (A) 85 %; Platelet Count 351 k/uL (150-450); RBC 3.62 m/uL (3.80-5.40); RDW 12.3 % (11.5-15.5); WBC 30.1 k/uL (3.8-10.6)
[2020-10-15] MEDS: SENNOSIDES-DOCUSATE SODIUM 1 EACH TAB PO SCH ×2 (08:13→20:09)
[2020-10-15] MEDS: LACTATED RINGERS 1,000 ML IV SCH ×2 (08:15→11:38)
--- NOTE | 2020-10-15 11:16 | P.PNOBGVD ---
Subjective - Subjective Principal diagnosis: day 1 Interval history: Overall patient is seen and evaluated and feels significantly improved over last night. It is noted that her white blood cell count however has increased to 30 and her hemoglobin appear stable at 10. Due to significant manipulation status post vaginal delivery with exploration uterus there is certainly possibility of early endometritis therefore we will plan IV antibiotics today with discontinuation switching her to by mouth antibiotics when she is stable for discharge. She is afebrile and has no other signs or symptoms of infection but as precaution due to the manual exploration of the uterus and concern over lingering symptomatology will be aggressive trying to clear any potential infection. Otherwise she is doing well. Her vital signs are stable and afebrile. Her heart is regular, lungs are clear, extremities without pain. Abdomen is soft uterus is firm and lochia is reported light. Her vaginal area is intact and there is scant bleeding overall she is doing well. Assessment day 1 with leukocytosis Plan IV antibiotics and continue current care Patient reports: Reports appetite normal, Reports voiding normally, Reports pain well controlled, Reports ambulating normally : doing well Objective - Latest Vital Signs Latest vital signs: Vital Signs Temp Pulse Resp BP Pulse Ox 10/15/20 08:00 97.8 F 79 18 123/75 99 10/15/20 04:30 98.1 F 79 16 111/51 10/15/20 04:00 16 10/15/20 00:00 97.3 F L 89 16 128/64 10/14/20 22:09 98.3 F 75 17 123/57 10/14/20 21:35 97.4 F L 85 17 116/58 10/14/20 21:20 78 17 124/65 10/14/20 21:10 76 17 129/60 10/14/20 20:54 72 17 123/62 99 10/14/20 20:35 97.3 F L 101 H 18 125/72 100 10/14/20 19:22 66 18 107/55 10/14/20 19:10 70 20 100/49 10/14/20 18:40 96.2 F L 78 18 130/69 10/14/20 18:10 96.2 F L 70 17 135/74 10/14/20 17:40 71 18 151/72 10/14/20 17:25 88 17 148/71 10/14/20 17:10 91 18 146/71 10/14/20 16:55 79 18 139/62 10/14/20 16:40 98.4 F 86 18 154/71 10/14/20 12:16 96.4 F L 95 18 133/74 10/14/20 11:42 96.4 F L 95 18 133/74 Intake and Output 10/14/20 10/15/20 10/15/20 22:59 06:59 14:59 Intake Total 1501.417 50 Output Total 300 750 Balance 1201.417 -700 Intake: IV 1500 Intake, IV Titration 1.417 Amount Oxytocin 30 Units/500 ml 1.417 Ns 30 unit In Saline 1 500ml.bag @ Per Protocol IV .Q0M [facility] Rx#:[id number] Oral 50 Output: Urine 300 750 Straight 300 750 Other: Voiding Method Indwelling Catheter # Voids 1 - Labs Labs: Abnormal Lab Results - Last 24 Hours (Table) 10/14/20 10/14/20 10/15/20 Range/Units 11:45 19:22 07:40 WBC 20.5 H 27.3 H 30.1 H (3.8-10.6) k/uL RBC 3.62 L (3.80-5.40) m/uL Hgb 10.7 L (11.4-16.0) gm/dL Hct 30.8 L (34.0-46.0) % Neutrophils # 16.7 H 25.4 H (1.3-7.7) k/uL Neutrophils # (Manual) 25.30 H (1.3-7.7) k/uL Monocytes # 1.4 H (0-1.0) k/uL
[2020-10-15] MEDS ORDERED: INFLUENZA VACCINE (6 MOS+) 60 MCG/0.5 ML SYRINGE IM ONE (11:28)
[2020-10-15] MEDS: CLINDAMYCIN 600 MG in DEXTROSE 5% IN WATER 50 ML IVPB SCH ×4 (11:38→20:11)
[2020-10-15] MEDS: Acetaminophen-Codeine 300-30mg TAB PO PRN ×2 (11:45→20:09)
[2020-10-15] MEDS ORDERED: GENTAMICIN 80 MG in SODIUM CHLORIDE 0.9% 100 ML IVPB SCH (16:00)
[2020-10-15] MEDS ORDERED: CLINDAMYCIN 600 MG in DEXTROSE 5% IN WATER 50 ML IVPB SCH ×2 (16:00)
[2020-10-15] MEDS: GENTAMICIN IN NACL ISO-OSM PMX 80 MG in SALINE 1 100ML.BAG IVPB SCH ×2 (16:01→23:17)
[2020-10-16 01:22] VITALS: PULSE 83
[2020-10-16] MEDS: Acetaminophen-Codeine 300-30mg TAB PO PRN (04:16)
[2020-10-16] MEDS: CLINDAMYCIN 600 MG in DEXTROSE 5% IN WATER 50 ML IVPB SCH ×2 (04:17)
[2020-10-16 07:24] LABS: Basophils # (A) 0.1 k/uL (0-0.2); Basophils % (A) 0 %; Eosinophils # (A) 0.3 k/uL (0-0.7); Eosinophils % (A) 2 %; HCT 27.1 % (34.0-46.0); Lymphocytes # (A) 3.2 k/uL (1.0-4.8); Lymphocytes % (A) 19 %; MCH 27.6 pg (25.0-35.0); MCV 86.1 fL (80.0-100.0); Mean Platelet Volume 7.4; Monocytes % (A) 6 %; Neutrophils % (A) 72 %; Platelet Count 310 k/uL (150-450); RBC 3.15 m/uL (3.80-5.40); RDW 12.9 % (11.5-15.5); WBC 16.8 k/uL (3.8-10.6)
[2020-10-16 07:31] LABS: HGB 8.7 gm/dL (11.4-16.0)
[2020-10-16] MEDS: GENTAMICIN IN NACL ISO-OSM PMX 80 MG in SALINE 1 100ML.BAG IVPB SCH (08:09)
[2020-10-16] MEDS: SENNOSIDES-DOCUSATE SODIUM 1 EACH TAB PO SCH (08:39)
[2020-10-16 09:33] VITALS: BP 122/84; RESP 16; TEMP 97.7
--- NOTE | 2020-10-16 10:06 | P.DS ---
Providers Date of admission: 10/14/20 11:33 Expected date of discharge: 10/16/20 Attending physician: Pradeep Contreras Primary care physician: Stated None Hospital Course: Better today. She is ambulating, voiding and tolerating her diet. She relates that her bottom feels much better there are no other's issues from her laceration and she is requesting discharge to home. Prescriptions have been forwarded to her pharmacy and we'll plan to keep her on Cleocin 3 days. All the questions are answered for her at this time. Discharge instructions were thoroughly reviewed and she is stable for discharge at this time. Vital signs stable afebrile. Heart regular, lungs clear, extremities without pain. Abdomen is soft uterus is firm and lochia is reported to be light. Vaginal laceration following repair is intact. Assessment post day 2. Plan discharged home follow up with me in 6 weeks. Patient Condition at Discharge: Good Plan - Discharge Summary New Discharge Prescriptions: New Ibuprofen [Motrin] 600 mg PO Q6HR PRN #30 tab PRN Reason: Pain Acetaminophen-Codeine 300-30mg [Tylenol #3] 1 tab PO Q4H PRN #30 tablet PRN Reason: Pain Clindamycin [Cleocin] 150 mg PO Q6H #12 cap No Action Pnv,Calcium 72/Iron/Folic Acid [ Plus Tablet] 1 tab PO DAILY Discharge Medication List Pnv,Calcium 72/Iron/Folic Acid [ Plus Tablet] 1 tab PO DAILY 11/08/16 [History] Acetaminophen-Codeine 300-30mg [Tylenol #3] 1 tab PO Q4H PRN #30 tablet 10/15/20 [Rx] Ibuprofen [Motrin] 600 mg PO Q6HR PRN #30 tab 10/15/20 [Rx] Clindamycin [Cleocin] 150 mg PO Q6H #12 cap 10/16/20 [Rx] Follow up Appointment(s)/Referral(s): Pradeep Contreras DO [Doctor of Osteopathic Medicine] - 6 Weeks Activity/Diet/Wound Care/Special Instructions: Heavy lifting, limit stairs and driving, and pelvic rest. If any high temperatures, heavy bleeding, or severe pain call my office. Total rest for 2 weeks showering is fine. Sitz baths are fine. Discharge Disposition: HOME SELF-CARE
[2020-10-16] MEDS ORDERED: GENTAMICIN TROUGH DUE 1 EACH MISC MISCELLANE ONE (15:30)
[2020-10-16] MEDS ORDERED: GENTAMICIN PEAK DUE 1 EACH MISC MISCELLANE ONE (18:00)
== END 2020-10-16 11:05 | disposition home or self-care (01) | DRG 768 ==
LOC: FBPOP 11:23 → 4FBP 11:33
PROVIDERS: ADMIT Obstetrics & Gynecology; ATTEND Obstetrics & Gynecology
PROC: 0DQR0ZZ Repair Anal Sphincter, Open Approach (ICD-10-PCS; 2020-10-14)
PROC: 10E0XZZ Delivery of Products of Conception, External Approach (ICD-10-PCS; principal; 2020-10-14 19:30)
DX: O99.344 Other mental disorders complicating childbirth (principal); Z37.0 Single live birth; O70.20 Third degree perineal laceration during delivery, unspecified; O72.1 Other immediate postpartum hemorrhage; F41.9 Anxiety disorder, unspecified; F32.9 Major depressive disorder, single episode, unspecified; Z3A.38 38 weeks gestation of pregnancy
CPT/HCPCS: 85025; 86850; 86900; 86901; 88307; 90686